=== PATIENT | male | born 1970 | race Caucasian/White ===

== ENCOUNTER 2016-10-18 07:50 | Emergency (ER) | payer MEDICARE, OTHER ==
[2016-10-18] MEDS ORDERED: KETOROLAC 60 MG/2 ML VIAL IM STA (08:20)
--- NOTE | 2016-10-18 08:23 | ED ---
General Adult HPI - General Chief complaint: Extremity Injury, Upper Stated complaint: Arm pain Time Seen by Provider: 10/18/16 08:13 Source: patient, RN notes reviewed Mode of arrival: ambulatory Limitations: language barrier - History of Present Illness Initial comments: Patient 46-year-old male who presents emergency room today with chief complaint of increased pain to the right shoulder over the last week. He does admit that he's been a friend's house doing some home improvements. States that his been following with increased greatly yesterday. Denies any specific injury or trauma. Does admit that it's worse with movements of abduction and flexion at the right shoulder. Patient denies any other injuries or complaints. Patient denies any recent fever, chills, shortness of breath, chest pain, back pain, abdominal pain, nausea or vomiting, numbness or tingling, dysuria or hematuria, constipation or diarrhea, headaches or visual changes, or any other complaints. - Related Data Home Medications Medication Instructions Recorded Confirmed Acetaminophen Tab [Tylenol Tab] 1,000 mg PO Q6H PRN 10/18/16 10/18/16 Previous Rx's Medication Instructions Recorded Ibuprofen [Motrin] 800 mg PO Q6HR PRN #30 tab 10/18/16 Allergies Allergy/AdvReac Type Severity Reaction Status Date / Time No Known Allergies Allergy Verified 10/18/16 08:10 Review of Systems ROS Statement: Those systems with pertinent positive or pertinent negative responses have been documented in the HPI. ROS Other: All systems not noted in ROS Statement are negative. Past Medical History Past Medical History: Hearing Disorder / Deafness History of Any Multi-Drug Resistant Organisms: None Reported Past Surgical History: Cholecystectomy Past Psychological History: No Psychological Hx Reported Smoking Status: Never smoker Past Alcohol Use History: None Reported Past Drug Use History: None Reported General Exam - General Exam Comments Initial Comments: General: The patient is awake and alert, in no distress, and does not appear acutely ill. Neck: The neck is supple, there is no tenderness or JVD. Cardiovascular: There is a regular rate and rhythm. No murmur, rub or gallop is appreciated. Respiratory: Lungs are clear to auscultation, respirations are non-labored, breath sounds are equal. No wheezes, stridor, rales, or rhonchi. Musculoskeletal: Normal appearance the right shoulder obvious deformity. Patient does have tenderness to the anterior aspect over the bicipital groove. Tender with flexion at the elbow joint against resistance again in the biceps. Sensation intact with pulses equal bilaterally 2+. Strength 5/5. Neurological: A&O x 3. CN II-XII intact, There are no obvious motor or sensory deficits. Coordination appears grossly intact. Speech is normal. Skin: Skin is warm and dry and no rashes or lesions are noted. Psychiatric: Normal mood and affect. Limitations: language barrier Course Vital Signs 10/18/16 07:56 Temperature 98.5 F Pulse Rate 63 Respiratory 20 Rate Blood Pressure 158/97 O2 Sat by Pulse 98 Oximetry Medical Decision Making - Medical Decision Making Patient's x-rays reviewed and shows possible before meals joint separation. Patient had no injury no trauma. No tenderness over the before meals joint. Patient's signs and symptoms are consistent with a tendinitis. He was discussed about biceps tendinitis. Advised to rest area use anti- inflammatories is feeling better after Toradol shot here in the emergency room. X-ray of the right shoulder did reveal possible nodule in the right upper lung. Chest x-ray was performed showing nodule. Patient and family member at bedside advised to follow-up the family doctor for further evaluation of this nodule possible orthopedics as well for possible MRI of the shoulder if there is no improvement. They state understanding and agreement. Disposition Clinical Impression: Biceps tendinitis, Nodule of right lung Disposition: HOME SELF-CARE Condition: Good Instructions: Tendinitis (ED) Additional Instructions: Please follow-up family doctor about lung nodule and orthopedics for right shoulder. Please use anti-inflammatories prescribed and return to emergency room for any other concerns. Prescriptions: Ibuprofen [Motrin] 800 mg PO Q6HR PRN #30 tab PRN Reason: Pain Referrals: Rupert Mensah DO [Primary Care Provider] - 1-2 days Linwood Prakash MD [Medical Doctor] - 1-2 days Time of Disposition: 09:38
--- NOTE | 2016-10-18 08:37 | XR ---
EXAMINATION TYPE: XR shoulder complete RT DATE OF EXAM: 10/18/2016 8:29 AM COMPARISON: NONE HISTORY: Pain TECHNIQUE: Three views are submitted. FINDINGS: The osseous structures are intact. There is no acute fracture or dislocation. The AC joint measures 6 mm. There is no elevation of the clavicle. Nodular appearing density in the right upper lobe could related the anterior margin first rib recommend dedicated chest x-ray. Sclerotic density involving t he humeral head likely related to bone island.. IMPRESSION: 1. No acute process. 2. Question nodular density right upper lobe corresponding with chest x-ray.
--- NOTE | 2016-10-18 09:17 | XR ---
EXAMINATION TYPE: XR chest 2V DATE OF EXAM: 10/18/2016 9:07 AM COMPARISON: NONE TECHNIQUE: PA and lateral views submitted. HISTORY: Abnormal x-ray FINDINGS: The lungs are clear and there is no pneumothorax, pleural effusion, or focal pneumonia. There is a n odular appearing density which likely is related to the anterior margin of the first rib. Recommend a short-term follow-up CT scan of the chest. IMPRESSION: 1. No acute process. Finding involving the nodule involving the right upper lobe most likely related to the anterior margin the right first rib. Recommend a short-term follow-up CT of the chest for conf irmation.
[2016-10-18 09:52] VITALS: BP 143/88; PULSE 73; RESP 18; TEMP 97.8
== END 2016-10-18 09:53 | disposition home or self-care (01) ==
LOC: EC 07:50
DX: M75.21 Bicipital tendinitis, right shoulder (principal); R91.1 Solitary pulmonary nodule
CPT/HCPCS: 99283; 96372; 71020; 73030; J1885

== ENCOUNTER → 2016-12-14 | Outpatient (CLI) | payer MEDICARE, OTHER ==
--- NOTE | 2016-12-15 07:29 | CT ---
EXAMINATION TYPE: CT chest w con DATE OF EXAM: 12/14/2016 7:43 PM COMPARISON: Chest x-ray October 18, 2016. HISTORY: Pt states of lung nodules found on cxr, abnormal x-ray. CT DLP: 1059.5 mGycm. Automated Exposure Control for Dose Reduction was Utilized. TECHNIQUE: CT scan of the thorax is performed following with IV Contrast, patient injected with 90 m L of Omnipaque 300. FINDINGS: LUNGS: The lungs are grossly clear, there is no concerning parenchymal mass or nodule identified. Ar ea of concern on chest x-ray does correlate with anterior sternal junction of right upper rib. There is no pleural effusion or pneumothorax seen. The tracheobronchial tree is patent. MEDIASTINUM: There are no greater than 1 cm hilar or mediastinal lymph nodes. Some scattered subcent imeter lymph nodes are present. No cardiomegaly or significant pericardial effusion is seen. OTHER: Cholecystectomy clips are present. IMPRESSION: No suspicious parenchymal nodule or mass is identified. No acute pulmonary process is see n.
== END | disposition home or self-care (01) ==
LOC: RADCTMAIN 19:04
PROVIDERS: ATTEND Family Medicine
DX: R91.1 Solitary pulmonary nodule (principal)
CPT/HCPCS: 71260; Q9967

== ENCOUNTER 2017-03-11 11:22 | Emergency (ER) | payer MEDICARE, OTHER ==
[2017-03-11] MEDS ORDERED: ceFAZolin 2 GM in SODIUM CHLORIDE 0.9% 100 ML IVPB STA (11:37)
[2017-03-11] MEDS ORDERED: DIPH,PERTUS(ACELL)TETVAC-LF 0.5 ML VIAL IM ONE (11:37)
[2017-03-11] MEDS ORDERED: ONDANSETRON 4 MG/2 ML VIAL IVP STA (11:42)
[2017-03-11] MEDS ORDERED: MORPHINE SULFATE 4 MG/ML SYRINGE IVP STA ×3 (11:42→14:18)
--- NOTE | 2017-03-11 11:44 | ED ---
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 Patient states that he was on a ladder proximal to 5 feet high with a crowbar and he is pulling off a portion of the wall. Patient states that it slipped and he fell off causing a crowbar to go through his elbow region on the right. He is unsure when his last tetanus was. Patient states history portion of the crowbar went through his elbow. Patient states there is some numbness and tingling to his hand there is full range of motion of his digits patient denies head injury, loss consciousness, neck pain, back pain or any other extremity injury at this time. Denies any chest pain or shortness breath - Related Data Home Medications Medication Instructions Recorded Confirmed Acetaminophen Tab [Tylenol Tab] 1,000 mg PO Q6H PRN 10/18/16 03/11/17 Allergies Allergy/AdvReac Type Severity Reaction Status Date / Time No Known Allergies Allergy Verified 03/11/17 12:06 Review of Systems ROS Statement: Those systems with pertinent positive or pertinent negative responses have been documented in the HPI. ROS Other: All systems not noted in ROS Statement are negative. Past Medical History Past Medical History: Hearing Disorder / Deafness History of Any Multi-Drug Resistant Organisms: None Reported Past Surgical History: Cholecystectomy Past Psychological History: No Psychological Hx Reported Smoking Status: Never smoker Past Alcohol Use History: None Reported Past Drug Use History: None Reported General Exam General appearance: alert, in no apparent distress Head exam: Present: atraumatic, normocephalic, normal inspection Eye exam: Present: normal appearance, PERRL, EOMI. Absent: scleral icterus, conjunctival injection, periorbital swelling ENT exam: Present: normal exam, mucous membranes moist Neck exam: Present: normal inspection, full ROM. Absent: tenderness, meningismus, lymphadenopathy Respiratory exam: Present: normal lung sounds bilaterally. Absent: respiratory distress, wheezes, rales, rhonchi, stridor Cardiovascular Exam: Present: regular rate, normal rhythm, normal heart sounds. 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 Absent: tenderness, paraspinal tenderness, vertebral tenderness Neurological exam: Present: alert, oriented X3, CN II-XII intact, reflexes normal. Absent: motor sensory deficit Skin exam: Present: warm, dry Course Vital Signs 03/11/17 03/11/17 11:30 12:30 Temperature 98.3 F Pulse Rate 71 70 Respiratory 20 20 Rate Blood Pressure 132/62 141/75 O2 Sat by Pulse 96 98 Oximetry Medical Decision Making - Medical Decision Making Patient was evaluated in the ER by Sonny with orthopedics associate did discuss case with Dr. Boles who recommends patient be transferred to a tertiary care with hand/microsurgery. Disposition Clinical Impression: Fall, Paresthesias in right hand, Laceration of right upper arm with complication, Injury, nerve, ulnar Disposition: OTHER INSTITUTION NOT DEFINED Condition: Stable Referrals: Rupert Mensah DO [Primary Care Provider] - 1-2 days Time of Disposition: 13:21 - Out of Hospital Transfer - Req. Specs Out of Hospital Transfer - Requested Specifics: Other Emergency Center ([facility])
--- NOTE | 2017-03-11 11:56 | XR ---
EXAMINATION TYPE: XR elbow complete RT , 3 VIEWS DATE OF EXAM ORDERED: 03/11/2017 HISTORY: Pain. COMPARISON: None. FINDINGS: There is a large soft tissue defect adjacent to the medial epicondyle. No fracture, disloc ation or joint effusion is seen. There is a tiny olecranon spur. IMPRESSION: 1. NO ACUTE OSSEOUS LESION. 2. LARGE SOFT TISSUE DEFECT. 3. TINY OLECRANON SPUR.
[2017-03-11 12:07] VITALS: RESP 20; TEMP 98.3
[2017-03-11 14:32] VITALS: BP 159/75; PULSE 84
--- NOTE | 2017-03-12 17:31 | P.CNOR ---
History of Present Illness - [facility] Consult date: 03/11/17 Requesting physician: Jus Montanez Consult reason: other (Traumatic open wounds of the right upper extremity due to crowbar) History of present illness: Patient is very pleasant 46-year-old male who is hearing impaired and has a group therapy counselor present at the bedside who is seen and examined in the emergency department Room #5 after we are contacted by Jus Montanez PA-C for further evaluation of the right upper extremity. 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 While pulling ob a brick he became unstable. He began to fall off a ladder, at which time he dropped a crowbar. He fell to the ground at which time the crowbar passed through his arm. He pulled the crowbar out of his arm. He was brought to [facility] for further evaluation. She states patient works at [employer]. Patient states he has significant pain in the right upper extremity above the elbow at the wound sites. He is unable to feel sensation to the entire right pinky and half of his ring finger. 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 He is able to perform active range of motion of the wrist, shoulder, and biceps without significant difficulty. He is able to perform tricep extension of the right upper extremity but has significant pain while doing so. We're consult to further address the patient for a plan of care proceeding forward. Patient denies loss of consciousness Past Medical History Past Medical History: Hearing Disorder / Deafness History of Any Multi-Drug Resistant Organisms: None Reported Past Surgical History: Cholecystectomy Past Psychological History: No Psychological Hx Reported Smoking Status: Never smoker Past Alcohol Use History: None Reported Past Drug Use History: None Reported Medications and Allergies Home Medications Medication Instructions Recorded Confirmed Type Acetaminophen Tab [Tylenol Tab] 1,000 mg PO Q6H PRN 10/18/16 03/11/17 History Allergies Allergy/AdvReac Type Severity Reaction Status Date / Time No Known Allergies Allergy Verified 03/11/17 12:06 Physical Examination Physical examination: Patient is awake, alert, oriented 3; patient is deaf and communicates through interpretation through sign language Patient has good chest excursion with deep inspiration and expiration Abdomen soft, nontender. Evidence of 2 open wounds of the right upper extremity distal to the shoulder but proximal to the elbow just above the elbow 2 wounds measures approximately 5 cm and approximately 3 cm respectively Wounds are open extending down to the deep layers Evidence of some active bleeding from the wound sites Significant pain with palpation around the wound sites Significant pain with extension of the right triceps Patient unable to feel sensation over the right pinky and half of the right ring finger Vascularly intact right upper extremity; capillary refill less than 2 seconds Active for range of motion of the left upper extremity without significant difficulty Neurovascularly intact left upper extremity Results Pertinent studies: X-rays right elbow: No acute osseous lesion; large soft tissue defect; tiny olecranon spur Assessment and Plan (1) Fall Status: Acute (2) Injury, nerve, ulnar Status: Acute (3) Laceration of right upper arm with complication Status: Acute (4) Paresthesias in right hand Status: Acute Plan: Assessment: Status post fall 12 feet from a ladder Traumatic right ulnar nerve injury 2 open wound laceration to the right upper extremity with complication Paresthesia of the right pinky and right ring finger Plan: After further evaluation of the patient in the emergency department and further discussion with Dr. Benjy Boles, we will currently plan to have the patient transferred to a tertiary facility with a microsurgeon for further assessment, treatment, and for probable surgical intervention. Case has been discussed in detail with Jus Montanez PA-C, who start the transfer process. Patient has been discussed in great detail with Dr. Benjy Boles and he agrees with this plan. Time with Patient: Greater than 30
== END 2017-03-11 14:30 | disposition short-term general hospital (02) ==
LOC: EC 11:22
DX: S51.011A Laceration without foreign body of right elbow, initial encounter (principal); S54.01XA Injury of ulnar nerve at forearm level, right arm, initial encounter; R20.2 Paresthesia of skin; Z23 Encounter for immunization; W11.XXXA Fall on and from ladder, initial encounter
CPT/HCPCS: 99285; 96365; 90471; 96375 ×2; 96376 ×2; 73080; 90715; J2270; J0690; J2405

== ENCOUNTER 2018-03-03 10:26 | Emergency (ER) | payer MEDICARE, OTHER ==
[2018-03-03 10:47] VITALS: RESP 18; TEMP 98.5
[2018-03-03] MEDS ORDERED: KETOROLAC 30 MG/ML 1 ML VIAL IVP STA (11:02)
--- NOTE | 2018-03-03 11:11 | ED ---
General Adult HPI - General Chief complaint: Back Pain/Injury Stated complaint: rt sided flank pain Time Seen by Provider: 03/03/18 10:48 Source: patient (Patient also has a female accompanying him who helps with sign language.), RN notes reviewed Mode of arrival: ambulatory Limitations: language barrier (Patient uses sign language. Patient does appear to understand what is said.) - History of Present Illness Initial comments: Patient is a pleasant 47-year-old male presenting to the emergency Department with right-sided back discomfort. Symptoms present the past few days. Symptoms have been waxing and waning. Symptoms are positional. No shortness of breath. Discomfort starts in the mid right back and radiates towards the front. No abdominal pain. No chest pain. No dyspnea. No history of similar symptoms previously. No trauma. - Related Data Home Medications Medication Instructions Recorded Confirmed [id number] 2 tab PO Q4HR PRN 03/03/18 03/03/18 [Excedrin] Previous Rx's Medication Instructions Recorded Omeprazole [PriLOSEC] 40 mg PO DAILY #30 capsule. 07/14/17 Cyclobenzaprine [Flexeril] 10 mg PO TID PRN #12 tablet 03/03/18 Allergies Allergy/AdvReac Type Severity Reaction Status Date / Time No Known Allergies Allergy Verified 03/03/18 11:08 Review of Systems ROS Statement: Those systems with pertinent positive or pertinent negative responses have been documented in the HPI. ROS Other: All systems not noted in ROS Statement are negative. Constitutional: Denies: fever Eyes: Denies: eye pain ENT: Denies: ear pain Respiratory: Denies: cough, dyspnea Cardiovascular: Denies: chest pain Endocrine: Denies: fatigue Gastrointestinal: Denies: abdominal pain Genitourinary: Denies: dysuria Musculoskeletal: Reports: back pain (Right thorax/rib region) Skin: Denies: rash Neurological: Denies: headache Past Medical History Past Medical History: Hearing Disorder / Deafness History of Any Multi-Drug Resistant Organisms: None Reported Past Surgical History: Cholecystectomy, Orthopedic Surgery Additional Past Surgical History / Comment(s): Extensive orthopedic surgery on right arm with tendon repair done at [facility] Past Anesthesia/Blood Transfusion Reactions: No Reported Reaction Past Psychological History: No Psychological Hx Reported Smoking Status: Never smoker - Past Family History Father Family Medical History: Coronary Artery Disease (CAD) Additional Family Medical History / Comment(s): Father at age 72 from coronary artery disease. Mother Family Medical History: No Reported History Additional Family Medical History / Comment(s): Mother is alive at age 85 with no major medical problems. Brother(s) Additional Family Medical History / Comment(s): Patient has 2 brothers with no major medical problems. Patient does not have any sisters. Patient has one daughter with no major medical problems. General Exam Limitations: no limitations General appearance: alert, in no apparent distress Head exam: Present: atraumatic Eye exam: Present: normal appearance, PERRL ENT exam: Present: normal oropharynx Neck exam: Present: normal inspection Respiratory exam: Present: normal lung sounds bilaterally. Absent: chest wall tenderness Cardiovascular Exam: Present: regular rate, normal rhythm Expanded Peripheral pulses: 2+: Radial (R), Radial (L), Posterior Tibialis (R), Posterior Tibialis (L) GI/Abdominal exam: Present: soft. Absent: distended, tenderness, guarding, rebound, rigid Extremities exam: Present: normal inspection. Absent: pedal edema, calf tenderness Back exam: Present: tenderness (Mild tenderness right thorax in the region of the ninth rib.) Neurological exam: Present: alert Psychiatric exam: Present: normal mood Skin exam: Present: normal color. Absent: rash Course Vital Signs 03/03/18 10:44 Temperature 98.5 F Pulse Rate 68 Respiratory 18 Rate Blood Pressure 165/101 O2 Sat by Pulse 97 Oximetry EKG Findings - EKG Comments: EKG Findings:: Normal sinus rhythm 63. AK 162. QRS 98. QT 394. QTC 43. Normal axis. Incomplete right bundle-branch block. No acute ST change. Medical Decision Making - Medical Decision Making Patient reevaluated and resting comfortably in bed. Symptoms have further improved with Toradol. Patient and female accompanying him are updated on results. - Lab Data Result diagrams: 03/03/18 11:50 03/03/18 11:50 Lab Results 03/03/18 03/03/18 03/03/18 Range/Units 11:50 11:50 11:50 WBC 6.8 (3.8-10.6) k/uL RBC 5.14 (4.30-5.90) m/uL Hgb 11.2 L (13.0-17.5) gm/dL Hct 36.5 L (39.0-53.0) % MCV 71.0 L (80.0-100.0) fL MCH 21.7 L (25.0-35.0) pg MCHC 30.6 L (31.0-37.0) g/dL RDW 16.4 H (11.5-15.5) % Plt Count 239 (150-450) k/uL Neutrophils % 61 % Lymphocytes % 26 % Monocytes % 7 % Eosinophils % 3 % Basophils % 1 % Neutrophils # 4.1 (1.3-7.7) k/uL Lymphocytes # 1.8 (1.0-4.8) k/uL Monocytes # 0.5 (0-1.0) k/uL Eosinophils # 0.2 (0-0.7) k/uL Basophils # 0.1 (0-0.2) k/uL Hypochromasia Moderate Anisocytosis Slight Microcytosis Moderate PT (9.0-12.0) sec INR (<1.2) APTT (22.0-30.0) sec D-Dimer (<0.60) mg/L FEU Sodium 139 (137-145) mmol/L Potassium 4.5 (3.5-5.1) mmol/L Chloride 105 (98-107) mmol/L Carbon Dioxide 26 (22-30) mmol/L Anion Gap 8 mmol/L BUN 12 (9-20) mg/dL Creatinine 0.76 (0.66-1.25) mg/dL Est GFR (CKD-EPI)AfAm >90 (>60 ml/min/1.73 sqM) Est GFR (CKD-EPI)NonAf >90 (>60 ml/min/1.73 sqM) Glucose 92 (74-99) mg/dL Calcium 9.4 (8.4-10.2) mg/dL Total Bilirubin 1.6 H (0.2-1.3) mg/dL AST 20 (17-59) U/L ALT 31 (21-72) U/L Alkaline Phosphatase 58 (38-126) U/L Total Protein 7.5 (6.3-8.2) g/dL Albumin 4.4 (3.5-5.0) g/dL Urine Color Light Yellow Urine Appearance Clear (Clear) Urine pH 7.5 (5.0-8.0) Ur Specific Warren 1.009 (1.001-1.035) Urine Protein Negative (Negative) Urine Glucose (UA) Negative (Negative) Urine Ketones Negative (Negative) Urine Blood Negative (Negative) Urine Nitrite Negative (Negative) Urine Bilirubin Negative (Negative) Urine Urobilinogen <2.0 (<2.0) mg/dL Ur Leukocyte Esterase Negative (Negative) 03/03/18 Range/Units 11:50 WBC (3.8-10.6) k/uL RBC (4.30-5.90) m/uL Hgb (13.0-17.5) gm/dL Hct (39.0-53.0) % MCV (80.0-100.0) fL MCH (25.0-35.0) pg MCHC (31.0-37.0) g/dL RDW (11.5-15.5) % Plt Count (150-450) k/uL Neutrophils % % Lymphocytes % % Monocytes % % Eosinophils % % Basophils % % Neutrophils # (1.3-7.7) k/uL Lymphocytes # (1.0-4.8) k/uL Monocytes # (0-1.0) k/uL Eosinophils # (0-0.7) k/uL Basophils # (0-0.2) k/uL Hypochromasia Anisocytosis Microcytosis PT 10.1 (9.0-12.0) sec INR 1.0 (<1.2) APTT 24.4 (22.0-30.0) sec D-Dimer 0.40 (<0.60) mg/L FEU Sodium (137-145) mmol/L Potassium (3.5-5.1) mmol/L Chloride (98-107) mmol/L Carbon Dioxide (22-30) mmol/L Anion Gap mmol/L BUN (9-20) mg/dL Creatinine (0.66-1.25) mg/dL Est GFR (CKD-EPI)AfAm (>60 ml/min/1.73 sqM) Est GFR (CKD-EPI)NonAf (>60 ml/min/1.73 sqM) Glucose (74-99) mg/dL Calcium (8.4-10.2) mg/dL Total Bilirubin (0.2-1.3) mg/dL AST (17-59) U/L ALT (21-72) U/L Alkaline Phosphatase (38-126) U/L Total Protein (6.3-8.2) g/dL Albumin (3.5-5.0) g/dL Urine Color Urine Appearance (Clear) Urine pH (5.0-8.0) Ur Specific Warren (1.001-1.035) Urine Protein (Negative) Urine Glucose (UA) (Negative) Urine Ketones (Negative) Urine Blood (Negative) Urine Nitrite (Negative) Urine Bilirubin (Negative) Urine Urobilinogen (<2.0) mg/dL Ur Leukocyte Esterase (Negative) - Radiology Data Radiology results: image reviewed (Chest and abdominal x-rays show no acute process) Disposition Clinical Impression: Thoracic back pain Disposition: HOME SELF-CARE Condition: Stable Instructions: Thoracic Pain (ED) Additional Instructions: Please follow-up with primary care physician in the next day or 2 for recheck. Return for difficulty breathing, chest pain, abdominal pain, worsening symptoms or other concerns. [id number] Motrin as needed. Prescriptions: Cyclobenzaprine [Flexeril] 10 mg PO TID PRN #12 tablet PRN Reason: Pain Is patient prescribed a controlled substance at d/c from ED?: No Referrals: Rupert Mensah DO [Primary Care Provider] - 1-2 days Time of Disposition: 12:52
[2018-03-03 12:17] LABS: Anisocytosis Slight; Basophils # (A) 0.1 k/uL (0-0.2); Basophils % (A) 1 %; Eosinophils # (A) 0.2 k/uL (0-0.7); Eosinophils % (A) 3 %; HCT 36.5 % (39.0-53.0); HGB 11.2 gm/dL (13.0-17.5); Hypochromasia Moderate; Lymphocytes # (A) 1.8 k/uL (1.0-4.8); Lymphocytes % (A) 26 %; MCH 21.7 pg (25.0-35.0); MCHC 30.6 g/dL (31.0-37.0); Mean Platelet Volume 7.3; Microcytosis Moderate; Monocytes # (A) 0.5 k/uL (0-1.0); Monocytes % (A) 7 %; Neutrophils # (A) 4.1 k/uL (1.3-7.7); Neutrophils % (A) 61 %; Platelet Count 239 k/uL (150-450); RBC 5.14 m/uL (4.30-5.90); RDW 16.4 % (11.5-15.5); WBC 6.8 k/uL (3.8-10.6)
[2018-03-03 12:19] LABS: Appearance,Urine Clear (Clear); Bilirubin,Urine Negative (Negative); Blood,Urine Negative (Negative); Color,Urine Light Yellow; Glucose,Urine (UA) Negative (Negative); Ketones,Urine Negative (Negative); Leukocyte Esterase,Urine Negative (Negative); Nitrite,Urine Negative (Negative); PH, Urine 7.5 (5.0-8.0); Protein,Urine Negative (Negative); Specific Gravity,Urine 1.009 (1.001-1.035); Urobilinogen,Urine <2.0 mg/dL (<2.0)
[2018-03-03 12:21] LABS: ALT 31 U/L (21-72); AST 20 U/L (17-59); Albumin 4.4 g/dL (3.5-5.0); Alkaline Phosphatase 58 U/L (38-126); Anion Gap 8 mmol/L; Blood Urea Nitrogen 12 mg/dL (9-20); Calcium 9.4 mg/dL (8.4-10.2); Carbon Dioxide 26 mmol/L (22-30); Chloride 105 mmol/L (98-107); Glucose 92 mg/dL (74-99); Potassium 4.5 mmol/L (3.5-5.1); Sodium 139 mmol/L (137-145); Total Bilirubin 1.6 mg/dL (0.2-1.3); Total Protein 7.5 g/dL (6.3-8.2)
--- NOTE | 2018-03-03 12:28 | XR ---
EXAMINATION TYPE: XR chest 2V DATE OF EXAM: 03/03/2018 COMPARISON: 10/18/2016 HISTORY: Chest pain and right-sided back pain. TECHNIQUE: Frontal and lateral views of the chest are obtained. FINDINGS: There is no focal air space opacity, pleural effusion, or pneumothorax seen. The cardiac silhouette size is within normal limits. The osseous structures are intact. Prominence of the right first rib is unchanged from the exam of 10/18/[address] chest dated 12/14/2016. IMPRESSION: No acute cardiopulmonary process.
--- NOTE | 2018-03-03 12:30 | XR ---
EXAMINATION TYPE: XR KUB DATE OF EXAM: 03/03/2018 12:18 PM CLINICAL HISTORY: Right-sided back pain radiating anterior to the abdomen TECHNIQUE: Single upright image of the abdomen is obtained. COMPARISON: None. FINDINGS: Multiple right-sided surgical clips are seen within the mid abdomen. Scattered gas is seen in nondilated small bowel loops. Gas and fecal material is seen in nondilated colon. There is no visc eromegaly, pneumoperitoneum, or abnormal calcification appreciated. The lung bases are clear and the osseous structures are intact. IMPRESSION: Nonobstructive bowel gas pattern.
[2018-03-03 12:41] LABS: D-Dimer 0.4 mg/L FEU (<0.60); Partial Thromboplastin Time 24.4 sec (22.0-30.0); Prothrombin Time 10.1 sec (9.0-12.0)
[2018-03-03 12:53] VITALS: BP 142/76; PULSE 73
== END 2018-03-03 13:45 | disposition home or self-care (01) ==
LOC: EC 10:26
DX: M54.6 Pain in thoracic spine (principal); H91.90 Unspecified hearing loss, unspecified ear; Z90.49 Acquired absence of other specified parts of digestive tract
CPT/HCPCS: 99284; 96374; 36415; 93005; 85379; 80053; 85025; 85610; 85730; 81003; 71046; 74018; J1885

== ENCOUNTER → 2018-10-22 | Outpatient (CLI) | payer MEDICARE, OTHER ==
--- NOTE | 2018-10-22 12:29 | XR ---
EXAMINATION TYPE: XR calcaneus 2V LT DATE OF EXAM: 10/22/2018 COMPARISON: None HISTORY: Pain TECHNIQUE: Two-view calcaneus FINDINGS: Very tiny plantar calcaneal heel spur appears to be present. There is a large Achilles tend on calcaneal heel spur present. No acute fractures are evident. The joint spaces appear preserved. He el pad appears normal. IMPRESSION: 1. Calcaneal heel spurs
== END | disposition home or self-care (01) ==
LOC: RADXRMAIN 12:06
PROVIDERS: ATTEND Family Medicine
DX: M77.32 Calcaneal spur, left foot (principal)

== ENCOUNTER 2019-10-13 08:13 | Day surgery (SDC) | payer MEDICARE, OTHER ==
[2019-10-09 12:25] VITALS: BMI 33.0
[~2019-10-13 08:13] MED LIST: LACTATED RINGERS 1,000 ML IV SCH; LIDOCAINE 1% 20 ML VIAL (10MG/ML) FOR IV START INTRADERMA PRN
[2019-10-13 08:38] VITALS: TEMP 98.7
[2019-10-13] MEDS ORDERED: LIDOCAINE 1% INJ 10MG/ML (20 ML MDV) ONE (09:37)
[2019-10-13] MEDS ORDERED: PROPOFOL 10 MG/ML 20 ML VIAL IV ONE (09:37)
--- NOTE | 2019-10-13 09:44 | P.GSHP ---
History of Present Illness H&P Date: 10/13/19 Chief Complaint: GI bleeding Is a 49-year-old male presents today for EGD and colonoscopy. Patient issues with GI bleed. His previous history of peptic ulcer disease. Patient is deaf. We will using an political scientist for translation. Past Medical History Past Medical History: Hearing Disorder / Deafness Additional Past Medical History / Comment(s): deaf, recent black stools, had some rectal bleeding in the past History of Any Multi-Drug Resistant Organisms: None Reported Past Surgical History: Cholecystectomy, Orthopedic Surgery Additional Past Surgical History / Comment(s): Extensive orthopedic surgery on right arm with tendon repair done at [facility], colonoscopy, EGD Past Anesthesia/Blood Transfusion Reactions: No Reported Reaction Smoking Status: Never smoker - Past Family History Father Family Medical History: Coronary Artery Disease (CAD) Additional Family Medical History / Comment(s): Father at age 72 from coronary artery disease. Mother Family Medical History: No Reported History Additional Family Medical History / Comment(s): Mother is alive at age 85 with no major medical problems. Brother(s) Additional Family Medical History / Comment(s): Patient has 2 brothers with no major medical problems. Patient does not have any sisters. Patient has one daughter with no major medical problems. Medications and Allergies Home Medications Medication Instructions Recorded Confirmed Type Ergocalciferol [Vitamin D2] 50,000 unit PO Q7D 10/09/19 10/13/19 History Allergies Allergy/AdvReac Type Severity Reaction Status Date / Time No Known Allergies Allergy Verified 10/09/19 12:26 Surgical - Exam Vital Signs Temp Pulse Resp BP Pulse Ox 98.7 F 79 18 164/88 97 10/13/19 08:37 10/13/19 08:37 10/13/19 08:37 10/13/19 08:37 10/13/19 08:37 - General well developed, well nourished, no distress - Eyes PERRL - ENT normal pinna - Neck no masses - Respiratory normal expansion - Cardiovascular Rhythm: regular - Abdomen Abdomen: soft, non tender Assessment and Plan Assessment: GI bleed. We'll perform EGD and colonoscopy.
--- NOTE | 2019-10-13 10:05 | P.OP ---
Date of Procedure: 10/13/19 Preoperative Diagnosis: GI bleed Postoperative Diagnosis: Antral gastritis Mild diverticulosis Procedure(s) Performed: EGD Colonoscopy Anesthesia: MAC Surgeon: Neto Mathews Pathology: other (Antrum) Condition: stable Disposition: PACU Description of Procedure: The patient's placed on the endoscopy table in the lateral position. He received IV sedation. The gastroscope placed oropharynx passed in the esophagus and. Scope was then placed through the pylorus. The first and second portion of the duodenum appeared normal. The scope was then brought back the antrum this. Marli inflamed. The cold forceps used to biopsy stomach. The scope was unretroflexed and remainder stomach appeared normal. The GE junction was at 47 is. There is no evidence of a hiatal hernia. The GE junction was examined. The distal esophagus appeared normal. The proximal esophagus appeared normal. Scope Patient. Next digital rectal exam was performed. This revealed no abnormalities. Possible clot scope was then placed patient anus passed throughout the entire colon. The ileocecal valve was visualized. The cecum, ascending and transverse colon appeared normal. In the descending and; there is mild diverticular changes. Scope was then brought back the rectum and this appeared normal. Scope was then withdrawn from patient. There is no unsteady GI bleed. In the presumed patient's GI bleed was due to his gastritis.
[2019-10-13 10:49] VITALS: BP 147/86; PULSE 65; RESP 16
== END 2019-10-13 11:22 | disposition home or self-care (01) ==
LOC: ORWHC2ENDO 08:13
PROVIDERS: ATTEND Surgery
DX: K29.51 Unspecified chronic gastritis with bleeding (principal); K57.30 Diverticulosis of large intestine without perforation or abscess without bleeding; H91.90 Unspecified hearing loss, unspecified ear; Z87.11 Personal history of peptic ulcer disease; Z90.49 Acquired absence of other specified parts of digestive tract; Z98.890 Other specified postprocedural states; Z82.49 Family history of ischemic heart disease and other diseases of the circulatory system
CPT/HCPCS: 88305; 45378; 43239; J2001; J2704

== ENCOUNTER → 2021-03-10 | Outpatient (CLI) | payer MEDICARE, OTHER ==
--- NOTE | 2021-03-10 10:33 | ECHOF ---
Referral Reason:I10 hypertension, R07.89 chest pain MEASUREMENTS -------- HEIGHT: 180.3 cm WEIGHT: 109.8 kg BP: RVIDd: 2.4 cm (< 3.3) IVSd: 1.3 cm (0.6 - 1.1) LVIDd: 4.1 cm (3.9 - 5.3) LVPWd: 1.6 cm (0.6 - 1.1) IVSs: 2.1 cm LVIDs: 2.2 cm LVPWs: 2.7 cm LAESV Index (A-L): 18.36 ml/m Ao Diam: 3.9 cm (2.0 - 3.7) AV Cusp: 2.7 cm (1.5 - 2.6) LA Diam: 3.3 cm (2.7 - 3.8) MV EXCURSION: 14.230 mm (> 18.000) MV EF SLOPE: 122 mm/s (70 - 150) EPSS: 0.7 cm MV E Uriel: 1.15 m/s MV DecT: 265 ms MV A Uriel: 0.38 m/s MV E/A Ratio: 3.03 AR PHT: 686 ms RAP: 15.00 mmHg RVSP: 55.35 mmHg FINDINGS -------- This was a technically good study. The left ventricular size is normal. There is moderate concentric left ventricular hypertrophy. O verall left ventricular systolic function is normal with, an EF between 55 - 60 %. Normal LAP Grade 1 Diastolic Dysfunction. The right ventricle is normal in size. The left atrial size is normal. Normal LA size by volume 22+/-6 ml/m2. The right atrial size is normal. Interatrial and interventricular septum intact. The aortic valve is trileaflet and appears structurally normal. Trace amount of aortic regurgitatio n. The mitral valve is normal. There is trace mitral regurgitation. The tricuspid valve appears structurally normal. Mild tricuspid regurgitation present. There is m oderate pulmonary hypertension. The right ventricular systolic pressure, as measured by Doppler, is 55.35mmHg. There is no pulmonic regurgitation present. The aortic root size is normal. The inferior vena cava is mildly dilated. There is no pericardial effusion. CONCLUSIONS -------- 1. The left ventricular size is normal. 2. There is moderate concentric left ventricular hypertrophy. 3. Overall left ventricular systolic function is normal with, an EF between 55 - 60 %. 4. Normal LAP Grade 1 Diastolic Dysfunction. 5. Trace amount of aortic regurgitation. 6. There is trace mitral regurgitation. 7. Mild tricuspid regurgitation present. 8. There is moderate pulmonary hypertension. 9. The right ventricular systolic pressure, as measured by Doppler, is 55.35mmHg. 10. The inferior vena cava is mildly dilated. 11. There is no pericardial effusion. DIRECTOR VIDEO: Brigette Vega RDCS
== END | disposition home or self-care (01) ==
LOC: RADECHMAIN 08:33
PROVIDERS: ATTEND Family Medicine
DX: I08.3 Combined rheumatic disorders of mitral, aortic and tricuspid valves (principal); I27.20 Pulmonary hypertension, unspecified
CPT/HCPCS: 93306

== ENCOUNTER → 2021-04-06 | Outpatient (CLI) | payer MEDICARE, OTHER ==
--- NOTE | 2021-04-06 15:34 | US ---
EXAMINATION TYPE: US carotid duplex BILAT DATE OF EXAM: 04/06/2021 COMPARISON: NONE CLINICAL HISTORY: 50-year-old male R55 syncope. Headaches TECHNIQUE: Carotid duplex ultrasound examination. In direct Doppler criteria was utilized. FINDINGS: EXAM MEASUREMENTS: RIGHT: Peak Systolic Velocity (PSV) cm/sec ----- Right CCA: 93.0 ----- Right ICA: 99.1 ----- Right ECA: 94.0 ICA/CCA ratio: 1.1 RIGHT: End Diastole cm/sec ----- Right CCA: 28.4 ----- Right ICA: 33.1 ----- Right ECA: 20.2 LEFT: Peak Systolic Velocity (PSV) cm/sec ----- Left CCA: 102.7 ----- Left ICA: 97.9 ----- Left ECA: 89.8 ICA/CCA ratio: 1.0 LEFT: End Diastole cm/sec ----- Left CCA: 34.9 ----- Left ICA: 30.0 ----- Left ECA: 12.3 VERTEBRALS (direction of flow): Right Vertebral: Antegrade Left Vertebral: Antegrade Rhythm: Normal Electrical Lineman notes: Tortuous left side IMPRESSION: No hemodynamically significant internal carotid artery stenosis on either side. NASCET criteria was used in interpretation of this exam? Criteria for Assigning % of Stenosis / Diameter reduction (Estimation based on the indirect measurements of the internal carotid artery velocities (ICA PSV). 1. Normal (no stenosis)=ICA PSV < 125 cm/s: ratio < 2.0: ICA EDV<40 cm/s. 2. Less than 50% stenosis=ICA PSV < 125 cm/s: ratio < 2.0: ICA EDV<40 cm/s. 3. 50 to 69% stenosis=ICA PSV of 125 to 230 cm/s: ration 2.0 ? 4.0: ICA EDV 40-100 cm/s. 4. Greater than 70% stenosis to near occlusion= ICA PSV > 230 cm/s: ratio > 4.0: ICA EDV > 100 cm/s. 5. Near occlusion= ICA PSV velocities may be low or undetectable: variable ratio and ICA EDV. 6. Total occlusion=unable to detect flow.
== END | disposition home or self-care (01) ==
LOC: RADUSWWP 14:49
PROVIDERS: ATTEND Family Medicine
DX: R55 Syncope and collapse (principal)
CPT/HCPCS: 93880

== ENCOUNTER → 2021-04-14 | Outpatient (CLI) | payer MEDICARE, OTHER ==
--- NOTE | 2021-04-14 16:42 | EST ---
EXERCISE STRESS AGE: 50 SEX: M HT: 6'1" WT: 251 lbs. PROTOCOL: ETT STAGE: 4 DURATION OF EXERCISE: 9:42 HEART RATE REST: 71 BLOOD PRESSURE REST: 146/98 MAXIMUM HEART RATE ACHIEVED: 145 MAXIMUM BLOOD PRESSURE: 200/96 85% MPHR: 143 100% MPHR: 168 METS: 11.3 INDICATIONS: Chest pain CLINICAL INFORMATION: Baseline EKG revealed normal sinus rhythm without significant ST-T changes. Patient walked on standard Po protocol for a total duration of 9 minutes 42 seconds, achieved a maximal heart rate of 145 beats per minute, which is 85% of predicted maximal. He developed fatigue and shortness of breath but did not have angina. EKG did not reveal any ST-segment changes to indicate ischemia. FINAL IMPRESSION: 1. By EKG criteria, this is a negative stress test with fair exercise capacity. 2. The nuclear scan results, which are more pertinent, will be reported by the radiologist. ROBINSON / RICHARN: [id number] /
== END | disposition home or self-care (01) ==
LOC: RADNMMAIN 08:42
PROVIDERS: ATTEND Family Medicine
DX: R07.9 Chest pain, unspecified (principal)
CPT/HCPCS: 93017

== ENCOUNTER 2021-08-02 15:12 | Emergency (ER) | payer MEDICARE, OTHER ==
[2021-08-02 15:50] VITALS: BP 112/66; PULSE 72; RESP 20; TEMP 98.8
[2021-08-02] MEDS ORDERED: DIAZEPAM 5 MG/ML 2 ML INJ IM ONE (16:29)
[2021-08-02] MEDS ORDERED: KETOROLAC 15 MG/ML 1 ML VIAL IM STA (16:29)
--- NOTE | 2021-08-02 16:31 | ED ---
General Adult HPI - General Chief complaint: Back Pain/Injury Stated complaint: Back pain Time Seen by Provider: 08/02/21 15:50 Source: patient, family, RN notes reviewed, old records reviewed Mode of arrival: ambulatory Limitations: no limitations - History of Present Illness Initial comments: This is a 51-year-old male presents emergency Department complaining of paraspinous muscle pain bilaterally. Patient about a week ago was moving some windows at work and hurt his back and the pain has been persistent but yesterday the pain got worse particular with movement or when the patient was trying to sleep. Patient states it felt like a spasm. Patient denies any numbness weakness. Patient denies any chest pain difficulty breathing shortness of breath. Patient denies any lower extremity weakness. Patient states it's in the mid back in the thoracic region there is no lumbar pain or cervical pain. - Related Data Home Medications Medication Instructions Recorded Confirmed Ergocalciferol [Vitamin D2] 50,000 unit PO Q7D 10/09/19 10/13/19 Previous Rx's Medication Instructions Recorded Omeprazole [PriLOSEC] 40 mg PO DAILY #30 cap 10/13/19 Cyclobenzaprine [Flexeril] 10 mg PO TID #20 tab 08/02/21 Ibuprofen [Motrin] 600 mg PO Q6HR PRN #20 tab 08/02/21 Allergies Allergy/AdvReac Type Severity Reaction Status Date / Time No Known Allergies Allergy Verified 08/02/21 15:50 Review of Systems ROS Statement: Those systems with pertinent positive or pertinent negative responses have been documented in the HPI. ROS Other: All systems not noted in ROS Statement are negative. Past Medical History Past Medical History: Hearing Disorder / Deafness Additional Past Medical History / Comment(s): deaf, recent black stools, had some rectal bleeding in the past History of Any Multi-Drug Resistant Organisms: None Reported Past Surgical History: Cholecystectomy, Orthopedic Surgery Additional Past Surgical History / Comment(s): Extensive orthopedic surgery on right arm with tendon repair done at [facility], colonoscopy, EGD Past Anesthesia/Blood Transfusion Reactions: No Reported Reaction Past Psychological History: No Psychological Hx Reported Smoking Status: Never smoker Past Alcohol Use History: None Reported Past Drug Use History: None Reported - Past Family History Father Family Medical History: Coronary Artery Disease (CAD) Additional Family Medical History / Comment(s): Father at age 72 from c oronary artery disease. Mother Family Medical History: No Reported History Additional Family Medical History / Comment(s): Mother is alive at age 85 with no major medical problems. Brother(s) Additional Family Medical History / Comment(s): Patient has 2 brothers with no major medical problems. Patient does not have any sisters. Patient has one daughter with no major medical problems. General Exam - General Exam Comments Initial Comments: GENERAL: Patient is well-developed and well-nourished. Patient is nontoxic and well- hydrated and is in mild distress. ENT: Neck is soft and supple. No significant lymphadenopathy is noted. Oropharynx is clear. Moist mucous membranes. Neck has full range of motion without eliciting any pain. EYES: The sclera were anicteric and conjunctiva were pink and moist. Extraocular movements were intact and pupils were equal round and reactive to light. Eyelids were unremarkable. PULMONARY: Unlabored respirations. Good breath sounds bilaterally. No audible rales rhonchi or wheezing was noted. CARDIOVASCULAR: There is a regular rate and rhythm without any murmurs gallops or rubs. ABDOMEN: Soft and nontender with normal bowel sounds. SKIN: Skin is clear with no lesions or rashes and otherwise unremarkable. NEUROLOGIC: Patient is alert and oriented x3. Cranial nerves II through XII are grossly intact. Motor and sensory are also intact. Normal speech, volume and content. Symmetrical smile. MUSCULOSKELETAL: Normal extremities with adequate strength and full range of motion. Patient has some very mild tenderness to the paraspinous muscles on palpation LYMPHATICS: No significant lymphadenopathy is noted PSYCHIATRIC: Normal psychiatric evaluation. Limitations: no limitations Course Vital Signs 08/02/21 15:48 Temperature 98.8 F Pulse Rate 72 Respiratory 20 Rate Blood Pressure 112/66 O2 Sat by Pulse 97 Oximetry Medical Decision Making - Medical Decision Making T-spine x-ray shows no acute abnormality. Patient received Valium and Toradol in the emergency department. Considerably better. Disposition Clinical Impression: Bilateral thoracic back pain Disposition: HOME SELF-CARE Condition: Good Instructions (If sedation given, give patient instructions): Thoracic Back Strain (ED) Prescriptions: Cyclobenzaprine [Flexeril] 10 mg PO TID #20 tab Ibuprofen [Motrin] 600 mg PO Q6HR PRN #20 tab PRN Reason: For pain Is patient prescribed a controlled substance at d/c from ED?: No Referrals: Rupert Mensah DO [Primary Care Provider] - 1-2 days Time of Disposition: 17:19
--- NOTE | 2021-08-02 17:10 | XR ---
Result: History: Back pain. Comparison: None available. Technique: 3 views of the thoracic spine. Findings: The bone mineralization is normal. There is no acute fracture or subluxation. The vertebral body heights are preserved throughout the i nader thoracic spine. The vertebral elements are in anatomic alignment. The disc heights are mainta ined throughout the imaged spine. Impression: No significant osseous abnormality.
[2021-08-02] MEDS ORDERED: ACET/COD 300 MG/30 MG STARTER PACK 6 TAB BTL PO STA (17:28)
== END 2021-08-02 17:32 | disposition home or self-care (01) ==
LOC: EC 15:12
DX: M54.6 Pain in thoracic spine (principal); Z79.899 Other long term (current) drug therapy
CPT/HCPCS: 72072; 99283; 96372 ×2; J3360; J1885